=== PATIENT | female | born 1990 ===

== ENCOUNTER 2018-04-15 15:42 | Emergency (ER) | payer OTHER ==
[2018-04-15 15:47] VITALS: RESP 18; TEMP 98.3; BMI 29.2
[2018-04-15] MEDS ORDERED: Tmp-Smz 800 mg-160 mg DS Tab PO STA (17:04)
--- NOTE | 2018-04-15 17:06 | ED PDOC ---
Arrival/HPI - General Chief Complaint: Breast Problem Time Seen by Provider: 04/15/18 16:57 Historian: Patient - History of Present Illness Narrative History of Present Illness (Text): 04/15/18 16:59 28yo female who present with 2days history of painful abscess to her right breast. She did not take any medication for the pain. Florin fever, chills, any other complaint. Past Medical History - Provider Review Nursing Documentation Reviewed: Yes - Psychiatric Hx Psychophysiologic Disorder: No Hx Substance Use: No - Anesthesia Hx Anesthesia: No Family/Social History - Physician Review Nursing Documentation Reviewed: Yes Family/Social History: Unknown Family HX Smoking Status: Never Smoked Hx Alcohol Use: Yes Frequency of alcohol use: Socially Hx Substance Use: No Allergies/Home Meds Allergies/Adverse Reactions: Allergies guaifenesin [From Robitussin] Allergy (Verified 04/15/18 16:06) hives Review of Systems - Physician Review All systems were reviewed & negative as marked: Yes - Review of Systems Constitutional: Normal Eyes: Normal ENT: Normal Respiratory: Normal Cardiovascular: Normal Gastrointestinal: Normal Genitourinary Female: Normal Musculoskeletal: Normal Skin: Abscess (right breast) Neurological: Normal Endocrine: Normal Hemo/Lymphatic: Normal Psychiatric: Normal Physical Exam Vital Signs Reviewed: Yes Vital Signs Temp Pulse Resp BP Pulse Ox 04/15/18 15:44 98.3 F 82 18 116/73 97 Temperature: Afebrile Blood Pressure: Normal Pulse: Regular Respiratory Rate: Normal Appearance: Positive for: Well-Appearing, Non-Toxic, Comfortable Pain Distress: None Mental Status: Positive for: Alert and Oriented X 3 - Systems Exam Head: Present: Atraumatic, Normocephalic Pupils: Present: PERRL Extroacular Muscles: Present: EOMI Conjunctiva: Present: Normal Mouth: Present: Moist Mucous Membranes Neck: Present: Normal Range of Motion Respiratory/Chest: Present: Clear to Auscultation, Good Air Exchange. No: Respiratory Distress, Accessory Muscle Use Cardiovascular: Present: Regular Rate and Rhythm, Normal S1, S2. No: Murmurs Abdomen: No: Tenderness, Distention, Peritoneal Signs Back: Present: Normal Inspection Upper Extremity: Present: Normal Inspection. No: Cyanosis, Edema Lower Extremity: Present: Normal Inspection. No: Edema Neurological: Present: GCS=15, CN II-XII Intact, Speech Normal Skin: Present: Warm, Dry, Normal Color, Abscess (Approximately 2 x 2cm area of induraton with fluctuant center noted on 6oclock of right breast). No: Rashes Psychiatric: Present: Alert, Oriented x 3, Normal Insight, Normal Concentration Medical Decision Making - Medication Orders Current Medication Orders: Discontinued Medications Cephalexin Monohydrate (Keflex) 500 mg PO STAT STA PRN Reason: Protocol Stop: 04/15/18 17:03 Last Admin: 04/15/18 17:32 Dose: 500 mg Lidocaine/Epinephrine (Lidocaine 1%/Epinephrine 1:077691 30 Ml) 0 ml IJ ONCE STA Stop: 04/15/18 17:14 Last Admin: 04/15/18 17:31 Dose: 30 ml Tramadol HCl (Ultram) 50 mg PO STAT STA Stop: 04/15/18 17:05 Last Admin: 04/15/18 17:31 Dose: 50 mg MAR Pain Assessment Document 04/15/18 17:31 LA (Rec: 04/15/18 17:31 LA [id number]) Pain Reassessment Is this a pain reassessment? No Sleep Is patient sleeping during reassessment? No Presence of Pain Presence of Pain Yes Pain Scale Used Pain Scale Used Numeric Location Left, Right or Bilateral Right Pain Location Body Site Breast Description Intensity of Pain at present 9 Trimethoprim/Sulfamethoxazole (Bactrim Ds Tab) 1 tab PO STAT STA PRN Reason: Protocol Stop: 04/15/18 17:05 Last Admin: 04/15/18 17:31 Dose: 1 tab Disposition/Present on Arrival - Present on Arrival Any Indicators Present on Arrival: No History of DVT/PE: No History of Uncontrolled Diabetes: No Urinary Catheter: No History of Decub. Ulcer: No History Surgical Site Infection Following: None - Disposition Have Diagnosis and Disposition been Completed?: Yes Diagnosis: Breast abscess Disposition: HOME/ ROUTINE Disposition Time: 17:10 Patient Plan: Discharge Patient Problems: Current Active Problems Problem Status Onset Breast abscess Acute Condition: STABLE Additional Instructions: Take medication as directed Follow up with your Doctor Return to Emergency department in 2days for packing removal Prescriptions: Cephalexin [Keflex] 500 mg PO TID #21 capsule Ibuprofen [Motrin Tab] 600 mg PO Q6 #15 tab Sulfamethoxazole/Trimethoprim [Bactrim DS 800 mg-160 mg] 1 tab PO BID #14 tab Referrals: PCP,NO [Primary Care Provider] - Follow up with primary [facility] [Outside] - Follow up with primary Forms: [employer] ([place]) - Incision & Drainage Of Abscess Anesthesia: With Epi (10) Prep Used: Betadine Procedure: Incised W/Scalpel Blade#: (15), Drained Pus, Irrigated Cavity W/ Saline, Probed To Break Up Loculations
[2018-04-15] MEDS ORDERED: Lidocaine 1%/Epinephrine 1:100000 30 ml vial IJ STA (17:13)
[2018-04-15 17:58] VITALS: O2SAT 100
[2018-04-16 03:09] VITALS: BP 115/83; PULSE 65
== END 2018-04-15 18:04 | disposition home or self-care (01) ==
LOC: ED 15:42
DX: N61.1 Abscess of the breast and nipple (principal)